=== PATIENT | male | born 1960 | race Caucasian/White ===

== ENCOUNTER 2022-09-23 10:26 | Day surgery (SDC) | payer OTHER ==
[2022-09-23] MEDS ORDERED: NA CHLORIDE 0.9% 1,000 ML ONE (10:33)
[2022-09-23 10:37] LABS: Absolute Lymphocytes (CBC) 2.5 K/uL (0.7-4.9); Hematocrit 46.6 % (39.6-49.0); MCV 86.8 fL (80-100); RBC Red Blood Cell Count 5.37 M/uL (4.33-5.43)
--- NOTE | 2022-09-23 10:51 | RAD REPORT ---
EXAM DESCRIPTION: Laurie Pa And Lat (2 Views)09/23/2022 10:21 am CLINICAL HISTORY: Preop for cyst removal left arm COMPARISON: 2014 FINDINGS: A 5 millimeter vague nodular opacity left lung base. Right lung appears clear Heart is normal size IMPRESSION: 5 millimeter vague nodular opacity left lung base probably not significant. Is recommend ed patient a followup chest film 6 months for re-evaluation
[2022-09-23] MEDS ORDERED: ACETAMINOPHEN 500 MG TAB ONE (11:42)
[2022-09-23] MEDS ORDERED: CEFAZOLIN SODIUM 1 GM/VIAL ONE (11:42)
[2022-09-23] MEDS ORDERED: CELECOXIB 100 MG CAPSULE ONE (11:42)
[2022-09-23] MEDS ORDERED: FENTANYL CITR 100 MCG/2 ML ONE (11:43)
[2022-09-23] MEDS ORDERED: dexAMETHasone 10 MG/ML VIAL ONE (11:43)
[2022-09-23] MEDS ORDERED: MIDAZOLAM HCL 2 MG/2 ML INJ ONE (11:43)
[2022-09-23] MEDS ORDERED: KETOROLAC 30 MG/ML INJ ONE (11:43)
[2022-09-23] MEDS ORDERED: LIDOCAINE 2% MPF 5 ML VIAL ONE (11:43)
[2022-09-23] MEDS ORDERED: propofoL 200 MG/20 ML VIAL IV ONE (11:43)
[2022-09-23] MEDS: BUPIVACAINE 0.5% PF 10 ML VIAL ONE ×2 (11:48→12:32)
[2022-09-23] MEDS ORDERED: ONDANSETRON 4 MG/2 ML VIAL ONE (12:12)
[2022-09-23] MEDS ORDERED: GLYCOPYRROLATE 0.2 MG/ML SYR ONE (12:43)
--- NOTE | 2022-09-23 12:51 | P.BOP ---
Preoperative diagnosis: tender left forearm subQ mass 3x3cm Postoperative diagnosis: same Primary procedure: Excisional biopsy of tender left forearm subQ mass 3x3cm Assistant Account Executive: OCHOA VOGEL (ROUND UP RING HAND) Estimated blood loss: <10cc Specimen: mass Findings: see dicta Anesthesia: General Complications: None Transferred to: Recovery Room Condition: Good
[2022-09-23 13:07] VITALS: O2SAT 99
[2022-09-23 14:02] VITALS: BP 115/73; TEMP 96.7
--- NOTE | 2022-09-23 20:10 | DS ---
Date of Discharge: 09/23/2022 Diagnosis: Tender left forearm subcutaneous mass. Procedure: Excisional biopsy of tender left forearm subcutaneous mass. Disposition: Home. Activity: As tolerated. No heavy lifting. Follow Up: In my office in 1 week. Call for appointment at [phone]. Keep area dry and clean for 48 hours, then may remove outer dressings and shower and then cover the area with triple antibiotics an d Band-Aid. DAGOBERTO/LASHAY Voice ID: [id number] Report ID: [id number]
--- NOTE | 2022-09-23 20:10 | OP ---
Date of Procedure: 09/23/2022 Surgeon: Warren St MD Customer Success Director: Daina Garcia. Preoperative Diagnosis: Tender left forearm subcutaneous mass 3 x 3 cm. Postoperative Diagnosis: Tender left forearm subcutaneous mass 3 x 3 cm. Procedure: Excisional biopsy of tender left forearm subcutaneous mass 3 x 3 cm. Estimated Blood Loss: Less than 10 cc. Specimen: Mass. Findings: The patient has this subcutaneous mass that is attached to the fascia of the muscle. Some fascia of the muscle had to be removed with the specimen in order for us to remove that completely. There is a vein site involved on this. It is vascularized. There is some vein involving the mass i tself and those were ligated. Indications: This is the case of a male who comes to us with mass. The benefits, alternatives, and risks of excision were fully explained which include, but are not limited to infection, bleeding, dam age to adjacent structures, anesthesia complication, recurrence, [place], and even . He also underst ands this may not relieve his symptoms and he might need more than one surgical intervention. He und erstood and signed a consent. The area of concern was marked by me and the patient in the holding ro om. The patient has previously had an MRI that was requested by his orthopedic doctor, but still emelia t area is inconclusive including a localized mass that is obviously present and palpated so we schedu led him for surgical intervention. Procedure In Detail: The patient was brought to the operating room and placed in supine position. A nesthesia was given without complication. Left forearm was prepped and draped in usual sterile fashi on. Local anesthesia was applied. A time-out was called. After time-out was called, wedge incision was made in the skin to include part of the skin. Incision was carried down all the way down to fas nina of the muscle and it seems to be attached to it. Muscle seems not to be involved. Mass was comp letely excised in 1 unit. The area was irrigated and then we proceeded to close this in layers with 3-0 chromic and then a 3-0 nylon. Before we closed this, we injected local anesthetic and we obtaine d hemostasis. The patient tolerated the procedure well. Patient was sent to recovery in stable cond ition. Sponge count and instrument counts correct. HM/MODL Voice ID: [id number] Report ID: [id number]
--- NOTE | 2022-09-24 05:45 | EKG ---
Test Date: 2022-09-23 Test Time: 10:04:53 Appetizer Packer: MARY MEASUREMENT RESULTS: Intervals: Rate: 45 MD: QRSD: 102 QT: 448 QTc: 387 [place]: P: 48 MD: QRS: -8 T: 10 INTERPRETIVE STATEMENTS: Sinus bradycardia with 2nd degree AV block (Mob[place] I) Abnormal ECG No previous ECG available for comparison Electronically Signed On 09-24-22 05:44:40 CASE MANAGERS by Hipolito Guerra
== END 2022-09-23 13:56 | disposition home or self-care (01) ==
LOC: OR 10:26
PROVIDERS: ATTEND Surgery
PROC: 0JBH0ZZ Excision of Left Lower Arm Subcutaneous Tissue and Fascia, Open Approach (ICD-10-PCS; principal; 2022-09-23 12:45)
DX: R22.32 Localized swelling, mass and lump, left upper limb (principal); E11.9 Type 2 diabetes mellitus without complications; G47.30 Sleep apnea, unspecified
CPT/HCPCS: 11403; 93005 ×2; 85025; 80048; 36415; 82947 ×2; 88304; 71046; J2704; J2001; J2250; J3010; J7030; J2405; J0690; 88305; J1100